=== PATIENT | female | born 2000 | race Caucasian/White ===

== ENCOUNTER → 2023-12-23 | Outpatient (CLI) | payer OTHER, SELFPAY ==
[2023-12-23 10:37] LABS: Absolute Lymphocyte Count 1.65 X10^3/uL (0.83-4.51); Absolute Neutrophil Count 5.9 X10^3/uL (2.0-7.7); Basophil# 0.05 X10^3/uL; Basophil% 0.6 % (0-1); Eosinophil# 0.06 X10^3/uL; Eosinophils% 0.7 % (0-5); Hematocrit 33.3 % (37-47); Hemoglobin 11.2 g/dL (12.0-15.0); Lymphocyte # 1.65 X10^3/ul (0.83-4.51); Mean Corp Hgb Conc 33.6 g/dL (32-36); Mean Corpuscular Hgb 30.1 pg (27.0-32.0); Mean Corpuscular Volume 89.5 fL (81-99); Mean Platelet Vol. 9.2 fl (6.2-12.0); Monocyte% 7.3 % (0-10); NRBC Flagged by Analyzer 0 % (0-5); Neutrophil # 5.88 X10^3/uL (2.7-7.7); Platelet Count 397 K/mm3 (150-450); RBC Distribution Width CV 13.4 % (11.6-14.6); RBC Distribution Width SD 44.3 fl (35.1-43.9); Red Blood Count 3.72 M/mm3 (4.2-5.4); White Blood Count 8.3 K/mm3 (4.4-11.0)
[2023-12-23 11:45] LABS: HIV - WCH Non-Reactive (Nonreactive); Hepatitis B Surface Antigen Non-Reactive (Nonreactive); Hepatitis C Antibody Non-Reactive (Nonreactive); Rubella IgG Reactive (Nonreactive); Syphilis Antibodies Non-reactive
[2023-12-26 03:06] LABS: Chlamydia By Nucleic Acid AMP Negative (Negative); Gonococcus By Nucleic Acid AMP Negative (Negative)
[2023-12-28 16:27] LABS: HPV Reflexed? NOT INDICATED
== END | disposition home or self-care (01) ==
PROVIDERS: Advanced Practice Midwife; PCP Family Medicine; Referring Provider Nurse Practitioner Gerontology; Visit Provider Nurse Practitioner Gerontology
DX: Z34.00 Encounter for supervision of normal first pregnancy, unspecified trimester (principal)
CPT/HCPCS: 36415; 85025; 86703; 86762; 86780; 86803; 86850; 86900; 86901; 87086; 87088; 87340; 87491; 87591; 88175; G0145

== ENCOUNTER → 2024-02-17 | Outpatient (CLI) | payer SELFPAY, OTHER ==
--- NOTE | 2024-02-17 13:29 | US_ITS ---
HISTORY: anatomy. TECHNIQUE: Transabdominal and transvaginal pelvic ultrasound was performed. 84 images. COMPARISON: None. FINDINGS: INTRAUTERINE GESTATION(s): Single. PRESENTATION: Variable. HEART MOTION: 166 bpm. PLACENTA: Anterior, grade one. Tip 1.6-1.9 cm from the internal os on transvaginal imaging. CERVIX: 4.7 cm long and closed. AMNIOTIC FLUID: Largest fluid pocket 4 x 6.3 cm and subjectively unremarkable. biometry- BIPARIETAL DIAMETER: 4.7 cm, corresponding to 20 weeks 1 day. HEAD CIRCUMFERENCE: 17.6 cm, corresponding to 20 weeks 1 day. ABDOMINAL CIRCUMFERENCE: 16.2 cm, corresponding to 21 weeks 2 days. FEMUR LENGTH: 3.2 cm, corresponding to 19 weeks 6 days. ESTIMATED GESTATIONAL AGE: 20 weeks 2 days. ESTIMATED DUE DATE (ROHIT): 07/04/2024. ESTIMATED WEIGHT: 364 g corresponding to 84th percentile. ANATOMY: Anterior and posterior cranial fossa, facial profile, nose/lips, spine, bilateral upper and lower extremities, four-chamber heart, three-vessel cord insertion, stomach, kidneys, and bladder visualized. US/OB Anatomy w/ Transvaginal IMPRESSION: Single living intrauterine with an estimated gestational age of 20 weeks 2 days. Unremarkable anatomic survey. Low lying placenta; recommend follow-up. Electronically Signed: Kathia Weiner MD at 10:16 EDT ,
== END | disposition home or self-care (01) ==
LOC: US 13:29
PROVIDERS: Referring Provider Advanced Practice Midwife; Visit Provider Advanced Practice Midwife
DX: Z34.01 Encounter for supervision of normal first pregnancy, first trimester (principal)
CPT/HCPCS: 76805; 76817

== ENCOUNTER → 2024-04-19 | Outpatient (CLI) | payer OTHER, SELFPAY ==
--- NOTE | 2024-04-19 09:02 | US_ITS ---
STUDY: SECOND AND THIRD TRIMESTER OBSTETRICAL ULTRASOUND - LIMITED REASON FOR EXAM: Female, 23 years old low lying placenta -- please scan week of 04/16/24 COMPARISON: None TECHNIQUE: Transabdominal and endovaginal sonographic images of the pelvis. FINDINGS: Limited pelvic ultrasound to evaluate for possible low-lying placenta. There is a single live intrauterine in the cephalic presentation. The placenta is anterior in the tip of the placenta is approximately 4.6 cm from the internal os of the cervix. heart rate of 155 bpm. Normal amniotic fluid volume with an ODALIS of 15.3 cm. The cervix appears normal measuring 4.3 cm in length with a closed internal os. US/OB Limited (No Biometrics) IMPRESSION: Anterior placenta with no low-lying placenta or placenta previa. Single live intrauterine in the cephalic presentation. Electronically Signed: Dany Peterson DO at 23:41 EST , STUDY: SECOND AND THIRD TRIMESTER OBSTETRICAL ULTRASOUND - LIMITED REASON FOR EXAM: Female, 23 years old low lying placenta -- please scan week of 04/16/24 COMPARISON: None TECHNIQUE: Transabdominal and endovaginal sonographic images of the pelvis. FINDINGS: Limited pelvic ultrasound to evaluate for possible low-lying placenta. There is a single live intrauterine in the cephalic presentation. The placenta is anterior in the tip of the placenta is approximately 4.6 cm from the internal os of the cervix. heart rate of 155 bpm. Normal amniotic fluid volume with an ODALIS of 15.3 cm. The cervix appears normal measuring 4.3 cm in length with a closed internal os.
[2024-04-19 12:16] LABS: Absolute Lymphocyte Count 1.52 X10^3/uL (0.83-4.51); Absolute Neutrophil Count 6.1 X10^3/uL (2.0-7.7); Basophil# 0.06 X10^3/uL; Basophil% 0.7 % (0-1); Eosinophil# 0.06 X10^3/uL; Eosinophils% 0.7 % (0-5); Hematocrit 29.9 % (37-47); Hemoglobin 9.8 g/dL (12.0-15.0); Lymphocyte # 1.52 X10^3/ul (0.83-4.51); Lymphocyte % 16.9 % (19-41); Mean Corp Hgb Conc 32.8 g/dL (32-36); Mean Corpuscular Hgb 30.2 pg (27.0-32.0); Mean Platelet Vol. 9.5 fl (6.2-12.0); Monocyte# 0.82 X10^3/uL; Monocyte% 9.1 % (0-10); NRBC Flagged by Analyzer 0 % (0-5); Neutrophil # 6.13 X10^3/uL (2.7-7.7); Neutrophil % 68.4 % (47-70); Platelet Count 375 K/mm3 (150-450); RBC Distribution Width CV 13.3 % (11.6-14.6); RBC Distribution Width SD 44.5 fl (35.1-43.9); Red Blood Count 3.25 M/mm3 (4.2-5.4)
[2024-04-19 12:32] LABS: Glucose Challenge Gest 1H 50g 88 mg/dL (70-140)
[2024-04-19 12:55] LABS: HIV - WCH Non-Reactive (Nonreactive); Syphilis Antibodies Non-reactive
== END | disposition home or self-care (01) ==
PROVIDERS: Referring Provider Advanced Practice Midwife; Visit Provider Advanced Practice Midwife
DX: O44.40 Low lying placenta NOS or without hemorrhage, unspecified trimester (principal); Z3A.00 Weeks of gestation of pregnancy not specified; Z13.1 Encounter for screening for diabetes mellitus
CPT/HCPCS: 36415; 76815; 82950; 85025; 86703; 86780

== ENCOUNTER → 2024-06-04 | Outpatient (CLI) | payer OTHER, SELFPAY ==
[2024-06-04 12:21] LABS: Hematocrit 30.4 % (37-47); Hemoglobin 9.9 g/dL (12.0-15.0); Mean Corp Hgb Conc 32.6 g/dL (32-36); Mean Corpuscular Volume 92.1 fL (81-99); Mean Platelet Vol. 9.4 fl (6.2-12.0); POSITIVE COUNT YES; POSITIVE MORPHOLOGY YES; Platelet Count 346 K/mm3 (150-450); RBC Distribution Width CV 14.4 % (11.6-14.6); RBC Distribution Width SD 47.9 fl (35.1-43.9); White Blood Count 10.2 K/mm3 (4.4-11.0)
[2024-06-04 12:39] LABS: Differential Indicated MANUAL DIFF
[2024-06-04 13:36] LABS: Lymphocyte 12 % (19-41); Metamyelocyte 4 % (0-1); Monocyte 5 % (0-10); Myelocyte 1 % (0-0); Neutrophil-Band 1 % (0-5); Neutrophil-Segmented 77 % (47-70); Platelet Estimate A (ADEQ); Platelet Morphology LARGE; Total Cells Counted 100 (MANUAL DIFF)
[2024-06-04 13:37] LABS: Ovalocyte 1+; Polychromasia 1+; Reactive Lymphocyte 2+
[2024-06-04 13:38] LABS: Absolute Lymphocyte Count 1.23 X10^3/uL (0.83-4.51)
[2024-06-08 09:53] LABS: Pathologist Review Reviewed
== END | disposition home or self-care (01) ==
LOC: BWCLAB 09:39
PROVIDERS: Advanced Practice Midwife; Referring Provider Obstetrics & Gynecology; Visit Provider Obstetrics & Gynecology
DX: O99.019 Anemia complicating pregnancy, unspecified trimester (principal); Z3A.00 Weeks of gestation of pregnancy not specified
CPT/HCPCS: 36415; 85025

== ENCOUNTER → 2024-06-13 | Outpatient (CLI) | payer OTHER, SELFPAY | END | disposition home or self-care (01) | LOC: LABSPEC 16:42 | PROVIDERS: Visit Provider Advanced Practice Midwife | DX: Z34.00 Encounter for supervision of normal first pregnancy, unspecified trimester (principal) | CPT/HCPCS: 87081 ==

== ENCOUNTER → 2024-06-16 | Outpatient (CLI) | payer OTHER, SELFPAY ==
[2024-06-16 10:12] LABS: Absolute Lymphocyte Count 1.41 X10^3/uL (0.83-4.51); Absolute Neutrophil Count 6.1 X10^3/uL (2.0-7.7); Basophil# 0.05 X10^3/uL; Basophil% 0.6 % (0-1); Eosinophil# 0.06 X10^3/uL; Eosinophils% 0.7 % (0-5); Hematocrit 30.1 % (37-47); Hemoglobin 9.7 g/dL (12.0-15.0); Lymphocyte # 1.41 X10^3/ul (0.83-4.51); Mean Corp Hgb Conc 32.2 g/dL (32-36); Mean Corpuscular Hgb 29.9 pg (27.0-32.0); Mean Corpuscular Volume 92.9 fL (81-99); Mean Platelet Vol. 9.3 fl (6.2-12.0); Monocyte# 0.81 X10^3/uL; Monocyte% 9.2 % (0-10); NRBC Flagged by Analyzer 0 % (0-5); Neutrophil # 6.08 X10^3/uL (2.7-7.7); Neutrophil % 68.9 % (47-70); Platelet Count 315 K/mm3 (150-450); RBC Distribution Width CV 14.4 % (11.6-14.6); RBC Distribution Width SD 48.8 fl (35.1-43.9); Red Blood Count 3.24 M/mm3 (4.2-5.4); White Blood Count 8.8 K/mm3 (4.4-11.0)
[2024-06-16 10:39] LABS: Ferritin 10 ng/mL (8-252); Iron 54 ug/dL (50-170); Iron Binding Capacity,Total 521 ug/dL (250-450); PERCENT IRON SATURATION 10.4 % (15.0-55.0)
== END | disposition home or self-care (01) ==
LOC: LAB 09:14
PROVIDERS: Obstetrics & Gynecology; Referring Provider Advanced Practice Midwife; Visit Provider Advanced Practice Midwife
DX: O09.899 Supervision of other high risk pregnancies, unspecified trimester (principal); Z28.39 Other underimmunization status; Z3A.00 Weeks of gestation of pregnancy not specified; O99.019 Anemia complicating pregnancy, unspecified trimester
CPT/HCPCS: 36415; 82728; 83540; 83550; 85025; 86787

== ENCOUNTER 2024-07-12 05:08 | Inpatient (IN) | payer SELFPAY, OTHER ==
[2024-07-12] VITALS (56 sets, daily range): BP systolic 92–135; BP diastolic 53–84; PULSE 70–134; RESP 16–20; TEMP 36.7–37.3; O2SAT 79–100; BMI 34.1
[2024-07-12] MEDS: Lactated Ringers 1,000 ML 999 ML IV ×2 (05:20→08:45)
--- NOTE | 2024-07-12 05:32 | HP.PCM.OB_ITS ---
HPI - General General Date of Admission: 07/12/24 HPI Narrative OSCAR FRANCES, is a 23 F who presents with tachycardia and early labor, 4 cm diltaed. upon admisison she had a cat II- III tracing and an elevated white blood cell count. Suspected early triple I. Patient is afebrile but due to white count of 25 and tachycardia in the 180s with abnormal tracing and thick meconium upon rupture of membranes suspicion for infection and starting of antibiotics is recommended. Maternal Data Information ROHIT Calculator Estimated Delivery Date Method Current WG Current Estimate 07/07/24 Ultrasound #1 40w 5d Other Estimates 07/14/24 LMP (Certain) 39w 5d PFSH PFSH Home Medications ?Medication ?Instructions ?Recorded ?Last Taken ?Type multivit-min no.71-iron fum 28 1 cap PO DAILY 12/16/23 07/11/24 History mg-folate no.1 1 mg-dha 300 mg capsule (PNV-[place]) ferrous sulfate 325 mg (65 mg 325 mg PO DAILY 07/12/24 Unknown History iron) tablet (Feosol) Allergy/AdvReac Type Severity Reaction Status Date / Time No Known Allergies Allergy Verified 07/12/24 04:46 Family History Grandfather Cancer Maternal- melanoma Diabetes Grandmother Breast cancer Paternal Surgical History History of tonsillectomy and adenoidectomy Social History adopted: No household members: spouse number of children: 0 current occupational status: employed current occupation: [employer] current occupational exposures/hazards: No pets and animals: No history of recent travel: Yes ([place]- [place]) out of state: Yes out of country: No sexually active: Yes Smoking Status: Never smoker alcohol intake: never substance use type: does not use well-balanced diet: daily or most days caffeine: No eating out: rarely or never during the past year weight has: remained stable what type of physical activity do you participate in: walking frequency: daily duration: 15-30 minutes/day kavita/congregation: None seatbelt use: always do you feel safe at home: Yes additional social history: [employer] History 1 Elective abortions Hx Para 0 Spontaneous abortions Hx # Term Pregnancies Ectopic pregnancies Hx # Pregnancies Multiple births # of living children Visit Details Expected Delivery Route/Plan Labor Preferences- CB/BF classes: [] labor support person: [] labor intervention preferences: [] pain management options preferred: [] cut cord/dad catch: [] : [] PP control planned: [] discussed possible routes of delivery and associated risks: [] special requests: [] Plans Covid status: [] Flu vaccine: declined Tdap vaccine: declines Rhogam: [] LARC form signed: [] movement and labor precautions reviewed. Problem list reviewed and updated with the most current plan of care details and appropriate orders placed. Relevant counseling for the gestational age provided. Continue routine care and follow up unless otherwise noted in visit notes/problem list details OB Flowsheet Initial Weight: 168 lb Date -?-?-?-?-?-?-?-?-?-?-?-?- EGA Weight BP Urine Prot -?-?-?-?-?-?-?-?-?-?-?-?- Glucose FHR FuHt Pres Dilation -?-?-?-?-?-?-?-?-?-?-?-?- Effaced St Visit Note 12/23/23 -?-?-?-?-?-?-?-?-?-?-?-?- 11w 6d 168 lb 2 oz (+2 oz) 127/78 -?-?-?-?-?-?-?-?-?-?-?-?- 180 -?-?-?-?-?-?-?-?-?-?-?-?- kw- CRL 45.5 US GA at 11.6 ROHIT not changed. declines NIPT. requesting alberto green appts kw- CRL 45.5 US GA at 11.6 E DD adjusted. declines NIPT. requesting alberto green appts 01/18/24 -?-?-?-?-?-?-?-?-?-?-?-?- 15w 4d 176 lb (+8 lb) 112/75 Negative -?-?-?-?-?-?-?-?-?-?-?-?- Negative 150 -?-?-?-?-?-?-?-?-?-?-?-?- SM- no vb lof oc casional crmaping provided counseling regarding varicella 02/17/24 -?-?-?-?-?-?-?-?-?-?-?-?- 19w 6d 182 lb 6 oz (+14 lb 6 oz) 115/76 Negative -?-?-?-?-?-?-?-?-?-?-?-?- Negative 145 -?-?-?-?-?-?-?-?-?-?-?-?- LC- no vb/crampi ng. anatomy scan pending. no concerns today. 02/29/24 -?-?-?-?-?-?-?-?-?-?-?-?- 21w 4d 186 lb (+18 lb) 114/70 Negative -?-?-?-?-?-?-?-?-?-?-?-?- Negative 160 21 -?-?-?-?-?-?-?-?-?-?-?-?- KW- no vb/lof/ct x. good fm. work in appt to discuss US and follow up US. questions answered and reassured. 03/12/24 -?-?-?-?-?-?-?-?-?-?-?-?- 23w 2d 193 lb (+25 lb) 106/71 Negative -?-?-?-?-?-?-?-?-?-?-?-?- Negative 140 23 -?-?-?-?-?-?-?-?-?-?-?--?- KW- no vb/lof/ct x. good fm. 28 week labs discussed. US scheduled. 04/19/24 -?-?-?-?-?-?-?-?-?-?-?-?- 28w 5d 200 lb 2 oz (+32 lb 2 oz) 116/76 Negative -?-?-?-?-?-?-?-?-?-?-?-?- Negative 145 29 -?-?-?-?-?-?-?-?-?-?-?-?- SM- no vb lof go od fm no regular ctx 05/07/24 -?-?-?-?-?-?-?-?-?-?-?-?- 31w 2d 207 lb 6 oz (+39 lb 6 oz) 115/71 Negative -?-?-?-?-?-?-?-?-?-?-?-?- Negative 160 30 -?-?-?--?-?-?-?-?-?-?-?-?- JV- no contracti ons or loss of fluid. + FM. JV- no contractions or loss of fluid. + FM. rpt cbc in 6 weeks. pt is taking iron. 05/16/24 -?-?-?-?-?-?-?-?-?-?-?--?- 32w 4d 209 lb (+41 lb) 103/70 Negative -?-?-?-?-?-?-?-?-?-?-?-?- Negative 140 32 -?-?-?-?-?-?-?-?-?-?-?-?- KW- no vb/lof/ct x. + fm. no concerns today 05/31/24 -?-?-?-?-?-?-?-?-?-?-?-?- 34w 5d 212 lb 8 oz (+44 lb 8 oz) 110/72 Negative -?-?-?-?--?-?-?-?-?-?-?-?- Negative 145 34 -?-?-?-?-?-?-?-?-?-?-?-?- KW- no vb/lof/ct x. good fm. labor precautions reviewed. KW- no vb/lof/ctx. good fm. labor precautions reviewed. CBC ordered 06/13/24 -?-?-?-?-?-?-?-?-?-?-?-?- 36w 4d 215 lb 2 oz (+47 lb 2 oz) 103/70 Negative -?-?-?-?-?-?-?-?-?-?-?-?- Negative 145 36 Cephalic 1 -?-?-?-?-?-?-?-?-?-?-?-?- 50 KW- no v b/lof/ctx. good fm. GBS swab today. 06/20/24 -?-?-?-?-?-?-?-?-?-?-?-?- 37w 4d 218 lb (+50 lb) 123/75 Negative -?-?-?-?-?-?-?-?-?-?-?-?- Negative 150 37 Cephalic -?-?-?-?-?-?-?-?-?-?-?-?- KW- no vb/lof/ct x. good fm. KW- no vb/lof/ctx. good fm. DIscussed iron studies and HGB. may consider doing iron infusion and discussed she may need after delivery. 06/28/24 -?-?-?-?-?-?-?-?-?-?-?-?- 38w 5d 216 lb 2 oz (+48 lb 2 oz) 136/77 Negative -?-?-?-?-?-?-?-?-?-?-?-?- Negative 140 38 Cephalic 1 .5 -?-?-?-?-?-?-?-?-?-?-?-?- 60 -2 KW- no vb/ lof/ctx. good fm. discussed EPO 07/04/24 -?-?-?-?-?-?-?-?-?-?-?-?-
--- NOTE | 2024-07-12 05:32 | PCM.HP.OB ---
HPI - General General Date of Admission: 07/12/24 HPI Narrative OSCAR FRANCES, is a 23 F who presents with tachycardia and early labor, 4 cm diltaed. upon admisison she had a cat II- III tracing and an elevated white blood cell count. Suspected early triple I. Patient is afebrile but due to white count of 25 and tachycardia in the 180s with abnormal tracing and thick meconium upon rupture of membranes suspicion for infection and starting of antibiotics is recommended. Maternal Data Information ROHIT Calculator Estimated Delivery Date Method Current WG Current Estimate 07/07/24 Ultrasound #1 40w 5d Other Estimates 07/14/24 LMP (Certain) 39w 5d PFSH PFSH Home Medications ?Medication ?Instructions ?Recorded ?Last Taken ?Type multivit-min no.71-iron fum 28 1 cap PO DAILY 12/16/23 07/11/24 History mg-folate no.1 1 mg-dha 300 mg capsule (PNV-[place]) ferrous sulfate 325 mg (65 mg 325 mg PO DAILY 07/12/24 Unknown History iron) tablet (Feosol) Allergy/AdvReac Type Severity Reaction Status Date / Time No Known Allergies Allergy Verified 07/12/24 04:46 Family History Grandfather Cancer Maternal- melanoma Diabetes Grandmother Breast cancer Paternal Surgical History History of tonsillectomy and adenoidectomy Social History adopted: No household members: spouse number of children: 0 current occupational status: employed current occupation: [employer] current occupational exposures/hazards: No pets and animals: No history of recent travel: Yes ([place]- July) out of state: Yes out of country: No sexually active: Yes Smoking Status: Never smoker alcohol intake: never substance use type: does not use well-balanced diet: daily or most days caffeine: No eating out: rarely or never during the past year weight has: remained stable what type of physical activity do you participate in: walking frequency: daily duration: 15-30 minutes/day kavita/restorationism: None seatbelt use: always do you feel safe at home: Yes additional social history: [employer] History 1 Elective abortions Hx Para 0 Spontaneous abortions Hx # Term Pregnancies Ectopic pregnancies Hx # Pregnancies Multiple births # of living children Visit Details Expected Delivery Route/Plan Labor Preferences- CB/BF classes: [] labor support person: [] labor intervention preferences: [] pain management options preferred: [] cut cord/dad catch: [] : [] PP control planned: [] discussed possible routes of delivery and associated risks: [] special requests: [] Plans Covid status: [] Flu vaccine: declined Tdap vaccine: declines Rhogam: [] LARC form signed: [] movement and labor precautions reviewed. Problem list reviewed and updated with the most current plan of care details and appropriate orders placed. Relevant counseling for the gestational age provided. Continue routine care and follow up unless otherwise noted in visit notes/problem list details OB Flowsheet Initial Weight: 168 lb Date <del>?</del> EGA Weight BP Urine Prot <del>?</del> Glucose FHR FuHt Pres Dilation <del>?</del> Effaced St Visit Note 12/23/23 <del>?</del> 11w 6d 168 lb 2 oz (+2 oz) 127/78 <del>?</del> 180 <del>?</del> kw- CRL 45.5 US GA at 11.6 ROHIT not changed. declines NIPT. requesting mt hope appts kw- CRL 45.5 US GA at 11.6 ROHIT adjusted. declines NIPT. requesting mt hope appts 01/18/24 <del>?</del> 15w 4d 176 lb (+8 lb) 112/75 Negative <del>?</del> Negative 150 <del>?</del> SM- no vb lof occasional crmaping provided counseling regarding varicella 02/17/24 <del>?</del> 19w 6d 182 lb 6 oz (+14 lb 6 oz) 115/76 Negative <del>?</del> Negative 145 <del>?</del> LC- no vb/cramping. anatomy scan pending. no concerns today. 02/29/24 <del>?</del> 21w 4d 186 lb (+18 lb) 114/70 Negative <del>?</del> Negative 160 21 <del>?</del> KW- no vb/lof/ctx. good fm. work in appt to discuss US and follow up US. questions answered and reassured. 03/12/24 <del>?</del> 23w 2d 193 lb (+25 lb) 106/71 Negative <del>?</del> Negative 140 23 <del>?</del> KW- no vb/lof/ctx. good fm. 28 week labs discussed. US scheduled. 04/19/24 <del>?</del> 28w 5d 200 lb 2 oz (+32 lb 2 oz) 116/76 Negative <del>?</del> Negative 145 29 <del>?</del> SM- no vb lof good fm no regular ctx 05/07/24 <del>?</del> 31w 2d 207 lb 6 oz (+39 lb 6 oz) 115/71 Negative <del>?</del> Negative 160 30 <del>?</del> JV- no contractions or loss of fluid. + FM. JV- no contractions or loss of fluid. + FM. rpt cbc in 6 weeks. pt is taking iron. 05/16/24 <del>?</del> 32w 4d 209 lb (+41 lb) 103/70 Negative <del>?</del> Negative 140 32 <del>?</del> KW- no vb/lof/ctx. + fm. no concerns today 05/31/24 <del>?</del> 34w 5d 212 lb 8 oz (+44 lb 8 oz) 110/72 Negative <del>?</del> Negative 145 34 <del>?</del> KW- no vb/lof/ctx. good fm. labor precautions reviewed. KW- no vb/lof/ctx. good fm. labor precautions reviewed. CBC ordered 06/13/24 <del>?</del> 36w 4d 215 lb 2 oz (+47 lb 2 oz) 103/70 Negative <del>?</del> Negative 145 36 Cephalic 1 <del>?</del> 50 KW- no vb/lof/ctx. good fm. GBS swab today. 06/20/24 <del>?</del> 37w 4d 218 lb (+50 lb) 123/75 Negative <del>?</del> Negative 150 37 Cephalic <del>?</del> KW- no vb/lof/ctx. good fm. KW- no vb/lof/ctx. good fm. DIscussed iron studies and HGB. may consider doing iron infusion and discussed she may need after delivery. 06/28/24 <del>?</del> 38w 5d 216 lb 2 oz (+48 lb 2 oz) 136/77 Negative <del>?</del> Negative 140 38 Cephalic 1.5 <del>?</del> 60 -2 KW- no vb/lof/ctx. good fm. discussed EPO 07/04/24 <del>?</del> 39w 4d 215 lb 8 oz (+47 lb 8 oz) 101/71 Negative <del>?</del> Negative 130 39 Cephalic 2.5 <del>?</del> 70 -2 KW- no vb/lof/ctx. good fm. Discussed IOL at 41 weeks if needed 07/11/24 <del>?</del> 40w 4d 214 lb 8 oz (+46 lb 8 oz) 103/69 Negative <del>?</del> Negative 145 39 Cephalic 3 <del>?</del> 80 -2 KW- no vb/lof. reg ctx. good fm. IOL for tuesday. US scheduled ordered KW- no vb/lof. reg ctx. good fm. IOL for sunday 07/16-41.2 weeks. US ordered for tue or sat for postdates NST FHR Rate Baby A Baseline: 180 Variability:: Absent, Minimal and Moderate (After internal monitors placed and IV fluids given) Accelerations:: 15 x 15 (Now present after IV fluids and internal monitors placed) Decelerations:: None NST Reactive:: Yes FHR Category:: Category II and Category III (Initially resolving with IV fluids) Uterine Activity:: Every 2 to 4 ROS Constitutional Constitutional: Reports systems reviewed and no addt'l complaints, except as documented ENT HEENT: Reports systems reviewed and no addt'l complaints, except as documented Cardiovascular Cardiovascular: Reports systems reviewed and no addt'l complaints, except as documented Respiratory/Chest Respiratory/Chest: Reports systems reviewed and no addt'l complaints, except as documented Gastrointestinal Gastrointestinal: Reports systems reviewed and no addt'l complaints, except as documented and nausea; Denies abdominal pain Genitourinary Genitourinary: Reports systems reviewed and no addt'l complaints, except as documented, contractions Details: present and frequency (regular ) and movement Details: present Musculoskeletal Musculoskeletal: Reports systems reviewed and no addt'l complaints, except as documented Integumentary Integumentary: Reports as per HPI Neurologic Neurologic: Reports systems reviewed and no addt'l complaints, except as documented Endocrine Endocrinology: Reports systems reviewed and no addt'l complaints, except as documented Vital Signs Vital Signs Vital Signs: 07/12/24 04:40 07/12/24 04:40 07/12/24 04:41 Pulse Rate 107 H 112 H Blood Pressure BP Systolic BP Diastolic Pulse Ox 94 07/12/24 04:41 07/12/24 04:44 07/12/24 04:44 Pulse Rate 133 H Blood Pressure 101/56 L BP Systolic 101 BP Diastolic 56 Pulse Ox 95 07/12/24 04:46 07/12/24 04:46 07/12/24 04:47 Pulse Rate 129 H 118 H Blood Pressure BP Systolic BP Diastolic Pulse Ox 96 07/12/24 04:47 07/12/24 04:51 07/12/24 04:51 Pulse Rate 116 H Blood Pressure BP Systolic BP Diastolic Pulse Ox 94 97 07/12/24 04:56 07/12/24 04:56 07/12/24 05:01 Pulse Rate 129 H 112 H Blood Pressure BP Systolic BP Diastolic Pulse Ox 97 07/12/24 05:01 07/12/24 05:06 07/12/24 05:06 Pulse Rate 134 H Blood Pressure BP Systolic BP Diastolic Pulse Ox 95 96 07/12/24 05:11 07/12/24 05:11 Pulse Rate 129 H Blood Pressure BP Systolic BP Diastolic Pulse Ox 96 Weight Weight: 211 lb 9.6 oz Body Mass Index (BMI) 34.1 Physical Exam Const alert, oriented x3 and healthy appearing Constitutional Narrative: uncomfortable with contractions HEENT normocephalic and moist oral mucous membranes Head and Scalp: atraumatic Neck full ROM, no lymphadenopathy, supple and thyroid normal General: trachea midline Thyroid: thyroid normal Lymph Lymphatic: no lymphadenopathy noted Chest inspection of chest normal Resp normal respiratory effort Cardio regular rate GI soft to palpation and non-tender GI Narrative: gravid Inspection: gravid external exam normal Bimanual Exam - Vag & Uterus: uterus non-tender Manual OB Exam: estimated gestational size appropriate, presentation cephalic, dilated, effaced and station Extremity normal to inspection General Extremity: Negative for edema Skin no rashes or lesions noted Neuro deep tendon reflexes 2+ bilaterally Motor Exam: strength 5/5 throughout and clonus absent Psych mental status grossly normal Labs Labs Labs: Blood Type O POSITIVE Antibody Screen NEGATIVE Hct 30.1 % (37-47) L Hgb 9.7 g/dL (12.0-15.0) L Obstetrics Ultrasound Syphilis Total Ab Non-reactive VZV IgG Antibody Rubella IgG Antibody Reactive (Nonreactive) Hep Bs Antigen Non-Reactive (Nonreactive) Hepatitis C Antibody Non-Reactive (Nonreactive) Chlamydia DNA (PRASHANT) Negative (Negative) N.gonorrhoeae DNA (PRASHANT) Negative (Negative) HIV 1&2 Antibody Non-Reactive (Nonreactive) Glucose 1 Hr 50 gm 88 mg/dL (70-140) Assessment & Plan (1) Anemia affecting : COMMENT: iron studies and cbc ordered (2) Supervision of normal first : COMMENT: PRR , , ROHIT 07/15/23,surrpise Ramiro (3) : QUALIFIERS: Weeks of gestation: 40 weeks Qualified Code(s): Z3A.40 - 40 weeks gestation of COMMENT: GBS neg, discussed genetic & carrier testing- declined, normal anatomy (4) Maternal varicella, non-immune: COMMENT: recommend varicella vaccine post (5) Leukocytosis: (6) tachycardia: (7) Category II heart rate tracing during labor and delivery: (8) Tachycardia: (9) Chorioamnionitis in third trimester: COMMENT: suspected triple I start amp and gent PLAN: Plan admit, IVFs, start amp and gent, internal placed, interventions and support showing improvement in tracing now cat II wiht positive accel and moderate variability, now 5 cm dilated. continue exp management while addiitonal interventions are started
[2024-07-12 05:35] LABS: Absolute Lymphocyte Count 0.83 X10^3/uL (0.83-4.51); Absolute Neutrophil Count 13.6 X10^3/uL (2.0-7.7); Basophil# 0.07 X10^3/uL; Basophil% 0.3 % (0-1); Eosinophil# 8.27 X10^3/uL; Eosinophils% 32.4 % (0-5); Hematocrit 32.1 % (37-47); Hemoglobin 11.1 g/dL (12.0-15.0); Lymphocyte # 0.83 X10^3/ul (0.83-4.51); Lymphocyte % 3.2 % (19-41); Mean Corp Hgb Conc 34.6 g/dL (32-36); Mean Corpuscular Volume 89.7 fL (81-99); Mean Platelet Vol. 9.4 fl (6.2-12.0); Monocyte# 2.39 X10^3/uL; Monocyte% 9.4 % (0-10); NRBC Flagged by Analyzer 0 % (0-5); Neutrophil # 13.56 X10^3/uL (2.7-7.7); Neutrophil % 53.1 % (47-70); POSITIVE DIFFERENTIAL YES; POSITIVE MORPHOLOGY YES; Platelet Count 336 K/mm3 (150-450); RBC Distribution Width CV 14.2 % (11.6-14.6); RBC Distribution Width SD 46.9 fl (35.1-43.9); Red Blood Count 3.58 M/mm3 (4.2-5.4); White Blood Count 25.5 K/mm3 (4.4-11.0)
[2024-07-12 05:38] LABS: Differential Indicated SCAN CRITERIA MET
[2024-07-12] MEDS: 0.9% Saline Lock 10 ML Syringe IV (05:49)
[2024-07-12] MEDS: Ondansetron 4 MG/2 ML Vial IV (05:49)
[2024-07-12 06:09] LABS: Syphilis Antibodies Nonreactive (Nonreactive)
[2024-07-12] MEDS: Acetaminophen 500 MG Tablet PO (06:09)
[2024-07-12] MEDS: Lactated Ringers 1,000 ML 200 ML IV ×2 (06:30→09:55)
[2024-07-12 06:43] LABS: Differential Comment SCANNED; Pathologist Review May foll
[2024-07-12] MEDS: Gentamicin IV 300 MG in Dextrose 5%-Water (50mL Bag) 50 ML 100 MG IVPB (06:59)
[2024-07-12] MEDS: fentaNYL 100 MCG/2 ML Ampul IV (06:59)
[2024-07-12] MEDS: Ampicillin 2 GM in 0.9% Normal Saline (100mL MB+) 100 ML IV (08:21)
[2024-07-12] MEDS: fentaNYL-bupivacaine (epidural) 100 ML BAG EPIDURAL (09:50)
[2024-07-12] MEDS: Oxytocin 10 UNITS/ML Vial IM (12:14)
[2024-07-12] MEDS: Oxytocin 15 Units/NS 250ml 15 UNITS/250 ML IV.SOLN 83 UNITS IV (12:15)
[2024-07-12] MEDS: Methylergonovine 0.2 MG/ML Ampul IM (12:19)
[2024-07-12] MEDS: Carboprost Tromethamine 250 MCG/ML Ampul IM (12:21)
[2024-07-12] MEDS: TRANEXAMIC ACID 1,000 MG in 0.9% Normal Saline (100mL Bag) 100 ML 440 MG IV (12:30)
--- NOTE | 2024-07-12 12:54 | PLAC_PTH ---
PATIENT: SOCAR FRANCES LOC: [facility] U#:[id number] AGE/SX: 23/ ROOM: WP013 RE07/12/[address]: Dr. Judit Sawant MD : 2000 BED: 1 DIS: 07/13/2024 SPEC #: [id number] RECD: 07/13/24 09:06 STATUS: GUSTAVO MARCK #: [id number] ASYA: 07/12/24 12:[address]: Judit Sawant DEPT: SURGICAL PATHOLOGY RECD BY: Daniel Silva ENTERED: 07/13/24 09:06 SP TYPE: PLACENTA OTHR DR: No Primary Care Phys Tissues: Placenta, NOS Procedures: Surgery Specimen Level V HEADER OPERATION: Delivery PRE-OP DIAGNOSIS: Triple I TISSUE SUBMITTED: Placenta MICROSCOPIC DIAGNOSIS A. Placenta: * Mature third trimester placenta (672 grams, formalin fixed weight) with acute inflammation of the chorionic plate * Three vessel umbilical cord with acute funisitis * membranes with acute chorioamnionitis MICROSCOPIC DESCRIPTION Slides are reviewed. GROSS DESCRIPTION SPECIMEN: PLACENTA / CLINICAL INFORMATION: A. Weight: 4.05 kg B. Gestational Age: 40 weeks and 5 days C. Sex: Male PLACENTAL WEIGHT (POST FIXATION): 672 gm PLACENTAL DIMENSIONS: 19.5 x 16.2 x 3.6 cm PLACENTAL SHAPE: Usual ovoid PLACENTAL WEIGHT FOR GESTATIONAL AGE: Within 10-99th percentile (over/under percentile) MEMBRANES - Present A. Insertion: Marginal B. Site of rupture from edge: 9.5 cm from edge of placental disc C. Color of membrane: Green-briggs D. Abnormalities: Thick and cloudy, minimal attached clot on outer surfaces UMBILICAL CORD - Present A. Color: [place]-briggs B. Insertion: Eccentric 6.5 cm from the closest disc edge C. Length: 40.2 cm D. Diameter: 1.1 cm E. Number of vessels: Three F. Abnormalities: Focally dilated and filled with blood clot PLACENTAL DISC - Present A. Color of surface: Green-briggs B. surface abnormalities: Slightly cloudy amnion C. Maternal cotyledons: Intact D. Attached retro placental clot: No clot E. Cut surface: Dark red and spongy F. Lesions: None G. Separate clot: Absent SECTIONS SUBMITTED: 1. Membrane roll and two umbilical cord cross sections 2-4 Placental disc full thickness sections EliseK. 07/13/2024 CPT: 41212
[2024-07-12 13:58] LABS: Pathology Specimen OB SEE PATHOLOGY REPORT
--- NOTE | 2024-07-12 17:59 | OB.VAGDELI_ITS ---
Assessment & Plan (1) Chorioamnionitis in third trimester: COMMENT: suspected triple I start amp and gent (2) Vaginal delivery: COMMENT: SM IAL 40 boy Cintron suspected triple I mec mild PPH Maternal Data Information ROHIT Calculator Estimated Delivery Date Method Current WG Current Estimate 07/07/24 Ultrasound #1 40w 5d Other Estimates 07/14/24 LMP (Certain) 39w 5d Vaginal Delivery Maternal Presentation Maternal Presentation: see assessment and plan Vaginal Delivery Information Procedure Performed: Spontaneous Vaginal Delivery Surgeon/Practitioner: Judit Sawant Pre-Procedure Diagnosis: see assessment and plan Post-Procedure Diagnosis: same Type of anesthesia: Epidural Special Medications: methergine hemabate TXA Estimated Blood Loss: 500 Findings Description of procedure: Patient began pushing and delivered the head in the ALEXANDRA presentation. The head was delivered atraumatically. The anterior and posterior shoulders delivered without complication followed by the rest of the and the infant was placed on the maternal abdomen. Delayed cord clamping was employed for approximately 60 seconds. Cord was clamped and cut and gentle traction was applied to the cord and the placenta delivered spontaneously immediately follow ing it was noted to be intact with three-vessel cord. The perineum and vagina were inspected and was noted to have a first -degree laceration that was repaired in the usual fashion with 3-0 vicryl rapide. EBL was 500 cc mild atony treated with massage, hemabate metherine, txa given after atony treated just for prevention of further hemorrhage. Patient and tolerated delivery well. Presentation: Vertex Placental Delivery Description: Spontaneous Specimen collected: Yes Description of specimen(s) removed: placenta Flat Polisher senior analyst market intelligence: No Post Vaginal Deli Medications given after delivery: Other (pitocin) Complication Complications: No Multi Select Codes Urinary/Genital Urinary/Genital CPT Codes: 32962 Vaginal Delivery [facility]
--- NOTE | 2024-07-12 21:26 | DCINST_ITS ---
Discharge Instructions Diet Discharge Diet: No restrictions DC O2, CPAP, BIPAP needs Home O2 Discharge instructions: No Dressing / Incision Discharge Activity: Return to Normal Activity, May Not Drive (while taking narcotic pain medications.) and May Shower May resume sexual activity in: 4-6 weeks Dressing / Incision Call your doctor if your incision/area has: Continuous Slow Oozing, Sudden Increased Bleeding, Increased Pain/ Swelling, Increased Redness and Foul Smelling Discharge Follow Up Care Please Follow Up With: Judit Sawant MD When: Call [phone] to make an appointment with your doctor in 6 weeks. If you had elevated blood pressure or 4th degree laceration, you will need to be seen in 2 weeks. Test Results: Test results from this visit will be discussed in further detail at your follow- up appointment, if applicable. Discharge Plan Admission Admit Date/Time: 07/12/24 05:08 Attending Provider: Judit Sawant Primary Care Provider: Care Physician,No Primary Discharge Orders/Prescriptions Prescriptions: No Action PNV-[place] 28-1-300 mg capsule 1 cap PO DAILY ferrous sulfate [Feosol] 325 mg (65 mg iron) tablet 325 mg PO DAILY Referrals / Follow Up: Care Physician,No Primary [Primary Care Provider] - Disposition Disposition (needs filled in before D/C Order can be placed): Home, Self Care
[2024-07-12] MEDS: Acetaminophen 500 MG Tablet 1000 MG PO (22:47)
[2024-07-13 01:10] VITALS: BP 115/58; PULSE 82; RESP 16; TEMP 36.4; O2SAT 97
[2024-07-13 01:18] VITALS: BP 115/58; PULSE 101
[2024-07-13 05:09] VITALS: BP 104/51; PULSE 110; PULSE 112; RESP 16; TEMP 37.2; O2SAT 98
[2024-07-13 06:23] LABS: Absolute Lymphocyte Count 1.11 X10^3/uL (0.83-4.51); Absolute Neutrophil Count 17.2 X10^3/uL (2.0-7.7); Basophil# 0.04 X10^3/uL; Basophil% 0.2 % (0-1); Eosinophil# 0.06 X10^3/uL; Eosinophils% 0.3 % (0-5); Hematocrit 26.3 % (37-47); Lymphocyte # 1.11 X10^3/ul (0.83-4.51); Lymphocyte % 5.4 % (19-41); Mean Corp Hgb Conc 34.2 g/dL (32-36); Mean Corpuscular Hgb 30.7 pg (27.0-32.0); Mean Corpuscular Volume 89.8 fL (81-99); Mean Platelet Vol. 9.4 fl (6.2-12.0); Monocyte% 8.2 % (0-10); NRBC Flagged by Analyzer 0 % (0-5); Neutrophil # 17.15 X10^3/uL (2.7-7.7); Neutrophil % 83.2 % (47-70); POSITIVE DIFFERENTIAL YES; Platelet Count 266 K/mm3 (150-450); RBC Distribution Width CV 14.6 % (11.6-14.6); RBC Distribution Width SD 46.9 fl (35.1-43.9); Red Blood Count 2.93 M/mm3 (4.2-5.4); White Blood Count 20.6 K/mm3 (4.4-11.0)
[2024-07-13 06:24] LABS: Differential Indicated SCAN CRITERIA MET
[2024-07-13 06:59] LABS: Differential Comment SCANNED
[2024-07-13 07:00] LABS: Pathologist Review May foll
[2024-07-13 07:46] VITALS: BP 92/51; PULSE 95; RESP 16; TEMP 36.7
--- NOTE | 2024-07-13 08:14 | PN.OBGYN_ITS ---
Subjective Subjective Patient doing well without complaints. Tolerating PO. Ambulating and voiding without difficulty. Feeding well. Denies chest pain, shortness of breath, calf pain/swelling, fevers, chills, lightheadedness. Objective Data Objective Data Vital Signs: Vital Signs Temp Pulse Resp BP Pulse Ox O2 Del Method 98.1 F 95 16 92/51 L 98 Room Air 07/13/24 07:46 07/13/24 07:46 07/13/24 07:46 07/13/24 07:46 07/13/24 05:09 07/13/24 07:46 Oxygen Delivery Method Room Air Weight: 211 lb 9.6 oz Body Mass Index (BMI) 34.1 Intake & Output: Intake and Output for Last 24 Hours 07/11/24 07/12/24 07/13/24 23:59 23:59 23:59 Intake Total 3667.50 / 3667.50 Output Total 650 / 650 Balance 3017.50 / 3017.50 Lab / Micro Data Attestation: I reviewed the patient's lab results. 07/13/24 06:10 Labs: Laboratory Results - last 24 hr 07/13/24 06:10: WBC 20.6 H, RBC 2.93 L, Hgb 9.0 L, Hct 26.3 L, MCV 89.8, MCH 30.7, MCHC 34.2, RDW Std Deviation 46.9 H, RDW Coeff of Rina 14.6, Plt Count 266, MPV 9.4, Immature Gran % (Auto) 2.700 H, Neut % (Auto) 83.2 H, Lymph % (Auto) 5.4 L, [place] % (Auto) 8.2, Eos % (Auto) 0.3, Baso % (Auto) 0.2, Absolute Neuts (auto) 17.2 H, Absolute Lymphs (auto) 1.11, Nucleated RBC % 0, Differential Comment SCANNED, Diff Path Review May foll ROS Constitutional Constitutional: Reports systems reviewed and no addt'l complaints, except as documented; Denies anorexia or headache(s) Cardiovascular Cardiovascular: Reports systems reviewed and no addt'l complaints, except as documented; Denies dizziness, dyspnea, nausea or tachypnea Respiratory/Chest Respiratory/Chest: Reports systems reviewed and no addt'l complaints, except as documented; Denies cough, dyspnea, shortness of breath at rest or tachypnea Gastrointestinal Gastrointestinal: Reports systems reviewed and no addt'l complaints, except as documented; Denies abdominal pain, constipation or nausea Genitourinary Genitourinary: Reports systems reviewed and no addt'l complaints, except as documented; Denies burning urination, difficulty urinating, dysuria, urinary frequency or urinary incontinence Musculoskeletal Musculoskeletal: Reports systems reviewed and no addt'l complaints, except as documented Integumentary Integumentary: Reports systems reviewed and no addt'l complaints, except as documented Neurologic Neurologic: Reports systems reviewed and no addt'l complaints, except as documented; Denies abnormal speech, dizziness or headache(s) Psychiatric Psychiatric: Reports systems reviewed and no addt'l complaints, except as documented Endocrine Endocrinology: Reports systems reviewed and no addt'l complaints, except as documented Hematologic/Lymphatic Hematologic/Lymphatic: Reports systems reviewed and no addt'l complaints, except as documented Physical Exam Const alert, oriented x3 and no apparent distress Neck full ROM Resp normal respiratory effort, normal air movement and no retractions Effort and Inspection: able to speak in complete sentences and symmetric chest movement GI soft to palpation Bladder / Kidney Exam: bladder normal to palpation Uterus Palpation: uterus fundus firm Extremity normal to inspection and full ROM Psych mental status grossly normal, thought process normal and cooperative Assessment & Plan (1) Vaginal delivery: COMMENT: SM IAL 42 boy C[place] suspected triple I mec mild PPH PLAN: s/p PPD # 1 1. routine post delivery care 2. breast feeding- support given 3. rh positive 4. rubella immune 5. Discharge home if desired (2) Chorioamnionitis in third trimester: COMMENT: suspected triple I start amp and gent (3) Tachycardia: (4) Category II heart rate tracing during labor and delivery: (5) tachycardia: (6) Leukocytosis: (7) Anemia affecting : COMMENT: iron studies and cbc ordered (8) Supervision of normal first : COMMENT: PRR , , ROHIT 07/15/23,surrpise Ramiro (9) : QUALIFIERS: Weeks of gestation: 40 weeks Qualified Code(s): Z 3A.40 - 40 weeks gestation of COMMENT: GBS neg, discussed genetic & carrier testing- declined, normal anatomy (10) Maternal varicella, non-immune: COMMENT: recommend varicella vaccine post Charges/Coding Multi Select Codes Urinary/Genital Urinary/Genital CPT Codes: No Charge
[2024-07-13 12:20] VITALS: BP 117/56; PULSE 114; RESP 16; TEMP 36.1
[2024-07-13] MEDS: Senna/Docusate Sodium 1 Tablet PO (14:52)
== END 2024-07-13 15:25 | disposition home or self-care (01) | DRG 807 ==
LOC: WPOUT 05:18 → WP 05:18
PROVIDERS: Admitting Provider Obstetrics & Gynecology; Referring Provider Obstetrics & Gynecology; Visit Provider Obstetrics & Gynecology
DX: O41.1230 Chorioamnionitis, third trimester, not applicable or unspecified (principal); Z37.0 Single live birth; O70.0 First degree perineal laceration during delivery; O76 Abnormality in fetal heart rate and rhythm complicating labor and delivery; O99.02 Anemia complicating childbirth; Z3A.40 40 weeks gestation of pregnancy; O75.89 Other specified complications of labor and delivery; O77.0 Labor and delivery complicated by meconium in amniotic fluid
CPT/HCPCS: 59025; 59050; 85025; 86780; 86850; 86900; 86901; 88307; A4216; J2405